=== PATIENT | male | born 1995 | race Caucasian/White ===

== ENCOUNTER 2022-11-28 15:00 | Outpatient (CLI) | payer OTHER ==
[2022-11-28 22:47] LABS: CHLAMYDIA TRACHOMATIS DNA NEGATIVE (NEGATIVE); NEISSERIA GONORRHOEAE DNA NEGATIVE (NEGATIVE)
== END 2022-11-28 15:15 | disposition home or self-care (01) ==
LOC: LAB.N 15:00
PROVIDERS: ATTEND Family Medicine
DX: N48.9 Disorder of penis, unspecified (principal)
CPT/HCPCS: 36415; 86592; 86695; 86696; 86803; 87255; 87389; 87491; 87591; 87661

== ENCOUNTER 2022-12-07 10:39 | Emergency (ER) | payer OTHER ==
[2022-12-07 10:53] VITALS: BP 123/82
--- NOTE | 2022-12-07 12:09 | ED Physician Documentation ---
History of Present Illness - Stated complaint Stated Complaint: R SIDE FACIAL NUMBNESS AND PAIN - Chief complaint Chief Complaint: Neuro - History obtained from History obtained from: Patient - History of Present Illness Timing: Today Pain level max: 0 Pain level now: 0 - Additonal information Additional information: 27-year-old male presents to the emergency department stating that he was treated for a herpes outbreak, had sores on his genitals and a sore on his lip. He states that he took acyclovir. He is out of this now, started developing some pain on the right side of his face and then today had right-sided facial weakness. He tried to go see the [facility], but they referred him here. No other neurological deficits. No difficulty speaking or swallowing. Nothing makes it better or worse. Review of Systems Constitutional: denies: Fever, Chills Nose: denies: Rhinorrhea / runny nose, Congestion Skin: denies: Rash Musculoskeletal: denies: Neck pain, Back pain Neurologic: denies: Headache PD PAST MEDICAL HISTORY - Past Medical History Past Medical History: Yes Neuro: Migraines - Present Medications Home Medications: Ambulatory Orders Medication Instructions Recorded Confirmed Valacyclovir HCl [Valtrex] 1,000 mg PO TID #21 tablet 12/07/22 predniSONE [Deltasone] 60 mg PO DAILY #15 tablet 12/07/22 - Allergies Allergies/Adverse Reactions: Allergies Allergy/AdvReac Type Severity Reaction Status Date / Time No Known Drug Allergies Allergy Verified 12/07/22 10:53 PD ED PE NORMAL - Vitals Vital signs reviewed: Yes - General General: Alert and oriented X 3, No acute distress, Well developed/nourished - HEENT HEENT: Atraumatic, PERRL, EOMI, Moist mucous membranes, Pharynx benign - Neck Neck: Supple, no meningeal sign - Cardiac Cardiac: RRR, Strong equal pulses - Respiratory Respiratory: No respiratory distress, Clear bilaterally - Derm Derm: Warm and dry - Neuro Neuro: Alert and oriented X 3, Other (Right-sided facial paralysis including the forehead, positive Wei's phenomenon, positive flattening of the nasolabial fold) Eye Opening: Spontaneous Motor: Obeys Commands Verbal: Oriented GCS Score: 15 Results - Vitals Vitals: Vital Signs - 24 hr 12/07/22 10:50 Temperature 36.2 C L Heart Rate 73 Respiratory 20 Rate Blood Pressure 123/82 H O2 Saturation 100 Oxygen O2 Source Room air PD Medical Decision Making - ED course Complexity details: considered differential, d/w patient ED course: 27-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 Will place on valacyclovir and prednisone. He will utilize artificial tears at home as well. [place]. No indication of stroke, tumors, meningitis, e ncephalitis. No indication for emergent neuroimaging. Patient counseled regarding signs and symptoms for which I believe and urgent re-evaluation would be necessary. Patient with good understanding of and agreement to plan and is comfortable going home at this time This document was made in part using voice recognition software. While efforts are made to proofread this document, sound alike and grammatical errors may occur. Departure - Departure Disposition: Home, Self Care Clinical Impression: Wei's palsy Condition: Good Instructions: ED [place] [facility] Follow-Up: SEN MOLINA, [Primary Care Provider] - Prescriptions: predniSONE [Deltasone] 60 mg PO DAILY #15 tablet Valacyclovir HCl [Valtrex] 1,000 mg PO TID #21 tablet Comments: Please follow-up with your doctor in 1 week for recheck. Wei's palsy will usually resolve on its own, however in some cases it can become permanent. We will start you on steroids and antiviral medications. You should be using artificial tears during the day, artificial gel tears at night and you may need to tape your right eyelid shut at night to help prevent corneal ulcers. Your prescriptions were sent to [facility] in [place]
== END 2022-12-07 12:14 | disposition home or self-care (01) ==
LOC: ED 10:39
DX: G51.0 Bell's palsy (principal)
CPT/HCPCS: 99281; 99283

== ENCOUNTER 2023-08-14 07:39 | Outpatient (CLI) | payer OTHER ==
--- NOTE | 2023-08-16 11:58 | MRI Report ---
PROCEDURE: WRIST WO - RT INDICATIONS: ANESTHESIA OF SKIN TECHNIQUE: Noncontrast coronal proton density fast spin echo and T2 fast spin echo with fat saturation; coronal 3-D gradient echo, axial T1 spin echo and T2 fast spin echo with fat saturation, sagittal T1 spin ech o through the wrist. COMPARISON: None. FINDINGS: Image quality: Excellent. Bones and cartilage: The carpal bones are normally aligned. No bone marrow contusions or fractures. No evidence for avascular necrosis. Overlying cartilage surfaces appear normal. Carpal ligaments: T2 hyperintense signal is noted within mildly thickened scapholunate ligament. The lunotriquetral ligament is intact. In the absence of intra-articular contrast, the extrinsic carpal l igaments are not well identified. On sagittal images, the pisohamate ligament appears intact. Triangular fibrocartilage complex: There is signal abnormality involving triangular fibrocartilage ne ar its ulnar insertion concerning for low-grade TFCC tear. The adjacent meniscal homolog appears norm al in the absence of intra-articular contrast. The extensor carpi ulnaris tendon is mildly thickened at the level of ulnar styloid. Tendons and soft tissues: The carpal tunnel structures appear normal, including the median nerve. T he ulnar nerve appears normal within Guyon's canal. All six extensor tendon compartments demonstrate normal morphology, without pathologic tendon sheath fluid. No soft tissue ganglion cysts. IMPRESSION: 1. No marrow edema. No wrist fracture or dislocation. No evidence of avascular necrosis. 2. Finding is suggestive of low-grade sprain/intrasubstance partial thickness tear involving the inte rmalleolar ligament. No ligament rupture. The lunotriquetral ligament is intact. 3. Finding is concerning for subtle triangle of fibrocartilage tear near its ulnar insertion. 4. Tendinosis involving extensor carpi ulnaris tendon at the level of ulnar styloid. Rest of the exte nsor and flexor tendons are intact. 5. No soft tissue mass or drainable fluid collection. No gross ganglion cyst. No signal abnormality i s seen within medial and ulnar nerves. Reviewed by: Raul Lewis MD on 08/16/2023 11:56 AM PST Approved by: Raul Lewis MD on 08/16/2023 11:56 AM PST Station ID: [id number]
--- NOTE | 2023-08-16 12:00 | MRI Report ---
PROCEDURE: WRIST WO - LT INDICATIONS: ANESTHESIA OF SKIN TECHNIQUE: Noncontrast coronal proton density fast spin echo and T2 fast spin echo with fat saturation; coronal 3-D gradient echo, axial T1 spin echo and T2 fast spin echo with fat saturation, sagittal T1 spin ech o through the wrist. COMPARISON: None. FINDINGS: Image quality: Excellent. Bones and cartilage: The carpal bones are normally aligned. No bone marrow contusions or fractures. No evidence for avascular necrosis. Overlying cartilage surfaces appear normal. Carpal ligaments: Subtle T2 hyperintense signal within mildly thickened scapholunate ligament is seen . The lunotriquetral ligament is intact. In the absence of intra-articular contrast, the extrinsic ca rpal ligaments are not well identified. On sagittal images, the pisohamate ligament appears intact. Triangular fibrocartilage complex: Signal abnormality within regular fibrocartilage near its ulnar in sertion is noted. The adjacent meniscal homolog appears normal in the absence of intra-articular cont rast. The extensor carpi ulnaris tendon is mildly thickened. Tendons and soft tissues: The carpal tunnel structures appear normal, including the median nerve. T he ulnar nerve appears normal within Guyon's canal. All six extensor tendon compartments demonstrate normal morphology, without pathologic tendon sheath fluid. No soft tissue ganglion cysts. IMPRESSION: 1. No marrow edema. No fracture or dislocation. No evidence of avascular necrosis. 2. Suggestion of subtle triangle of fibrocartilage tear near its ulnar insertion. 3. Mild extensor carpi ulnaris tendinosis at the level of ulnar styloid. 4. Suggestion of low-grade sprain/intrasubstance partial thickness tear involving scapholunate ligame nt. No ligament rupture. The lunotriquetral ligament is intact. 5. No soft tissue mass or drainable fluid collection. No gross signal abnormality or contour irregula rity is seen in median nerve or ulnar nerve. Reviewed by: Raul Lewis MD on 08/16/2023 11:59 AM PST Approved by: Raul Lewis MD on 08/16/2023 11:59 AM PST Station ID: [id number]
== END 2023-08-14 07:40 | disposition home or self-care (01) ==
LOC: DI 07:39
DX: R20.0 Anesthesia of skin (principal); M67.834 Other specified disorders of tendon, left wrist; M67.833 Other specified disorders of tendon, right wrist

== ENCOUNTER 2024-05-01 08:17 | Outpatient (CLI) | payer OTHER ==
--- NOTE | 2024-05-01 16:39 | MRI Report ---
PROCEDURE: Lumbar Spine WO INDICATIONS: LOW BACK PAIN TECHNIQUE: Noncontrast sagittal T1 spin echo and T2 fast echo, sagittal STIR, axial T1 and T2 fast spin echo thr ough the lumbar spine. In cases with scoliosis, additional coronal T2 fast spin echo may be performe d. COMPARISON: None. FINDINGS: Image quality: Excellent. Alignment and Curvature: There is normal bony alignment. Bone Marrow: Marrow is of normal overall signal. No acute vertebral body compression fractures. Spinal Cord: Conus medullaris terminates at the L1 level. Visualized cord demonstrates normal signa l and size. Paraspinous Soft Tissues: No paravertebral masses. T12-L1: Normal in appearance. L1-L2: Normal in appearance. L2-L3: Broad-based disc bulge. L3-L4: Broad-based disc bulge, facet effusions. L4-L5: Disc desiccation, broad-based disc bulge, facet effusions. L5-S1: Facet effusions. IMPRESSION: Mild, multilevel degenerative disc disease and multilevel facet effusions. No significant spinal severo l or neural foraminal narrowing. Reviewed by: Jorge A Chang MD on 05/01/2024 4:37 PM PDT Approved by: Jorge A Chang MD on 05/01/2024 4:37 PM PDT Station ID: [id number]
== END 2024-05-01 08:18 | disposition home or self-care (01) ==
LOC: DI 08:17
DX: M51.36 Other intervertebral disc degeneration, lumbar region (principal); M25.48 Effusion, other site